=== PATIENT | male | born 1990 | race Caucasian/White ===

== ENCOUNTER 2017-02-25 20:49 | Emergency (ER) | payer BC ==
--- NOTE | 2017-02-25 21:02 | Emergency Department Record ---
History of Present Illness - General Chief complaint: Extremity Problem Stated complaint: LEFT INDEX FINGER INJURY Source: Patient Mode of Arrival: Ambulatory Limitations: No limitations - History of Present Illness Initial comments: 26 yo male presents with 2 days of left index finger pain and swelling at the nail edge. No injury. NO pus drainage at this time. No allergies. No other current symptoms. MD Complaint: Extremity pain, Extremity swelling -: Days(s) (2) Location: Left, Other (Finger) -: Yes Arthralgia Radiation: Distal Quality: Aching Consistency: Constant Improves with: Nothing Worsens with: Palpation Associated Symptoms: Denies other symptoms - Related Data Previous Rx's Medication Instructions Recorded Cephalexin [Keflex] 500 mg PO TID #21 cap 02/25/17 Allergies Allergy/AdvReac Type Severity Reaction Status Date / Time No Known Allergies Allergy Unverified 05/02/15 19:14 Review of Systems Constitutional: Denies: Chills, Fever, Weakness Eyes: Denies: Eye discharge ENT: Denies: Congestion, Throat pain Respiratory: Denies: Cough Cardiovascular: Denies: Edema Endocrine: Denies: Fatigue Gastrointestinal: Denies: Abdominal pain, Diarrhea, Nausea, Vomiting Genitourinary: Denies: Dysuria, Frequency, Hematuria Musculoskeletal: Reports: As per HPI, Arthralgia Skin: Reports: As per HPI, Change in color Neurological: Denies: Confusion, Headache Psychiatric: Denies: Anxiety Hematological/Lymphatic: Denies: Blood Clots, Easy bleeding, Easy bruising, Swollen glands Physical Exam - General General Appearance: Alert, Oriented x3, Cooperative, No acute distress - Head Head exam: Atraumatic - Eye Eye exam: Normal appearance. negative: Conjunctival injection, Scleral icterus - ENT ENT exam: Normal exam Ear exam: Normal external inspection Nasal Exam: negative: Normal inspection Mouth exam: negative: Normal external inspection - Neck Neck exam: Normal inspection - Respiratory Respiratory exam: negative: Accessory muscle use, Prolonged expiratory - Cardiovascular Cardiovascular Exam: Regular rate, Normal rhythm, Normal heart sounds Peripheral Pulses: 2+: Radial (L) - Rectal Rectal exam: Deferred - exam: Deferred - Extremities Extremities exam: Other (No streaking up the hand, all signs are localized to the distal epinychial region). negative: Normal inspection, Full ROM Image of Finger Tip: 1 - paronychial sweling and fluctuance, nail intact - Back Back exam: Reports: Normal inspection - Neurological Neurological exam: Alert, Normal gait, Oriented X3 - Psychiatric Psychiatric exam: Normal affect, Normal mood - Skin Skin exam: Dry, Intact, Normal color, Warm Course - Reevaluation(s) Reevaluation #1: Digital Block Betadine Prep Licodaine with Sensorcaine 50/50 3ml Tolerated well Procedure Gentle elevation of the epinycial fold Pus expressed The area was cleared and irrigated The wound was dressed We discussed home care and reasons to return to the ED 02/25/17 21:04 Disposition Disposition: Discharge Clinical Impression: Paronychia Disposition: Home, Self-Care Condition: (1) Good Instructions: Paronychia (ED) Additional Instructions: Soak the area is warm water twice daily to promote additional drainage Return to the ER if you have fever, streaking up the hand or arm, increased swelling or pain Prescriptions: Cephalexin [Keflex] 500 mg PO TID #21 cap Time of Disposition: 21:27 Quality - Quality Measures Quality Measures: N/A - Blood Pressure Screening Does Patient Have Any of the Following: No Systolic Measurement: ~ Screening for High Blood Pressure: < Pre-Hypertensive BP, F/U Documented > [ [id number]] Pre-Hypertensive Follow-up Interventions: Referral to alternative/primary care provider.
[2017-02-25] MEDS: CEPHALEXIN 500 MG CAPSULE PO STA (21:34)
== END 2017-02-25 21:50 | disposition home or self-care (01) ==
LOC: ER 20:49
DX: L03.012 Cellulitis of left finger (principal)
CPT/HCPCS: 99283